=== PATIENT | female | born 1985 | race Caucasian/White ===

== ENCOUNTER → 2024-03-18 10:56 | Outpatient (REF) | payer BC, SELFPAY | LOC: PNTC 10:56 | PROVIDERS: ATTENDING PHYSICIAN Obstetrics & Gynecology | DX: Z36.0 Encounter for antenatal screening for chromosomal anomalies (principal); Z36.82 Encounter for antenatal screening for nuchal translucency; O09.519 Supervision of elderly primigravida, unspecified trimester | CPT/HCPCS: 76801; 76813 ==

== ENCOUNTER → 2024-07-16 08:25 | Outpatient (REF) | payer BC, SELFPAY | LOC: WDC 08:25 | PROVIDERS: ATTENDING PHYSICIAN Nurse Practitioner Family | DX: N63.20 Unspecified lump in the left breast, unspecified quadrant (principal); N63.23 Unspecified lump in the left breast, lower outer quadrant | CPT/HCPCS: 76642 ==

== ENCOUNTER 2024-08-20 19:57 | Observation (INO) | payer BC, SELFPAY ==
[2024-08-20 20:13] VITALS: BP 123/66; BMI 28.7
== END 2024-08-20 21:18 | disposition home or self-care (01) ==
LOC: LDRP 19:57
PROVIDERS: ADMITTING PHYSICIAN Obstetrics & Gynecology
DX: M54.50 Low back pain, unspecified (principal); W10.8XXA Fall (on) (from) other stairs and steps, initial encounter; Y93.89 Activity, other specified; Y92.9 Unspecified place or not applicable
CPT/HCPCS: 59899; G0378

== ENCOUNTER 2024-09-23 19:29 | Inpatient (IN) | payer BC, SELFPAY ==
[2024-09-23 19:55] VITALS: BP 134/66; BMI 30.1
[2024-09-23 20:26] LABS: % Basophils 0.3 % (0-2); % Eosinophils 0.7 % (0-6); % Immature Granulocytes 0.4 % (0-0.5); % Lymphocytes 24.9 % (20.5-51.1); % Monocytes 9.1 % (1.7-9.3); % Neutrophils 64.6 % (42.2-75.2); Absolute Eosinophils 0.1 10^3/uL (0-0.7); Absolute Lymphocytes 2.4 10^3/uL (1.2-3.4); Absolute Monocytes 0.9 10^3/uL (0.1-0.6); Absolute Neutrophils 6.3 10^3/uL (1.4-6.5); Hematocrit 40.1 % (37.0-47.0); Mean Corp Hgb Conc. 34.9 g/dL (33.0-37.0); Mean Corpuscular Hgb 31.9 pg (27.0-31.0); Mean Corpuscular Volume 91.3 fL (81.0-99.0); Mean Platelet Volume 10.5 fL (7.4-10.4); Nucleated Red Blood Cells % 0 %; Platelet Count 296 10^3/uL (130-400); Red Blood Cell Count 4.39 10^6/uL (4.20-5.40); Red Cell Dist. Width 12.9 % (11.5-14.5); White Blood Cell Count 9.8 10^3/uL (4.8-10.8)
[2024-09-24] MEDS: PITOCIN 30 UNITS/NSS 500 ML IV (06:15)
[2024-09-24] MEDS: LR 1000 IV (09:52)
[2024-09-24] MEDS: SUBLIMAZE 100 MCG EPIDURAL (12:45)
[2024-09-24] MEDS: FENTANYL/BUPIVACAINE 100 EPIDURAL (12:45)
[2024-09-24] MEDS: MOTRIN 600 MG PO (20:36)
[2024-09-24] MEDS: TYLENOL 650 MG PO (20:38)
[2024-09-25] MEDS: TYLENOL 650 MG PO ×2 (04:15→09:03)
[2024-09-25] MEDS: MOTRIN 600 MG PO ×2 (04:15→11:56)
[2024-09-25 06:33] LABS: Hematocrit 35.7 % (37.0-47.0); Hemoglobin 12.3 g/dL (12.0-16.0)
[2024-09-25] MEDS: PRENATAL PLUS 1 TABLET PO (09:03)
[2024-09-25] MEDS: SENOKOT-S 1 TABLET PO (09:05)
[2024-09-25 11:57] LABS: Syphilis/T. pallidum Ab Reflex Negative (Negative)
== END 2024-09-25 18:23 | disposition home or self-care (01) | DRG 807 ==
LOC: LDRP 19:29
PROVIDERS: Obstetrics & Gynecology; ADMITTING PHYSICIAN Obstetrics & Gynecology; REFERRING PHYSICIAN Obstetrics & Gynecology
PROC: 10907ZC Drainage of Amniotic Fluid, Therapeutic from Products of Conception, Via Natural or Artificial Opening (ICD-10-PCS; 2024-09-24)
PROC: 3E033VJ Introduction of Other Hormone into Peripheral Vein, Percutaneous Approach (ICD-10-PCS; 2024-09-24)
PROC: 10E0XZZ Delivery of Products of Conception, External Approach (ICD-10-PCS; 2024-09-24)
PROC: 0KQM0ZZ Repair Perineum Muscle, Open Approach (ICD-10-PCS; 2024-09-24)
DX: O48.0 Post-term pregnancy (principal); Z37.0 Single live birth; Z3A.40 40 weeks gestation of pregnancy; O70.1 Second degree perineal laceration during delivery
CPT/HCPCS: 36415; 85014; 85018; 85025; 86780; 86850; 86900; 86901

== ENCOUNTER → 2024-11-09 08:05 | Outpatient (REF) | payer BC, SELFPAY | LOC: HWRAD 08:05 | PROVIDERS: ATTENDING PHYSICIAN Obstetrics & Gynecology | DX: N93.9 Abnormal uterine and vaginal bleeding, unspecified (principal) | CPT/HCPCS: 76830; 76856 ==

== ENCOUNTER 2024-11-11 06:20 | Day surgery (SDC) | payer BC, SELFPAY ==
[2024-11-11 11:10] VITALS: BMI 25.8
[2024-11-11 11:15] VITALS: BP 107/71
[2024-11-11] MEDS: NORMOSOL-R/PLASMALYTE-A 1000 IV (11:25)
[2024-11-11 11:31] VITALS: BMI 25.8
[2024-11-11 11:41] LABS: Hematocrit 42.3 % (37.0-47.0); Hemoglobin 14.6 g/dL (12.0-16.0)
[2024-11-11 16:25] VITALS: BP 104/61; BP_SYST 12
[2024-11-11 16:35] VITALS: BP 96/65
[2024-11-11 16:55] VITALS: BP 101/63
== END 2024-11-11 17:09 | disposition home or self-care (01) ==
LOC: SDS 06:20
PROVIDERS: ATTENDING PHYSICIAN Obstetrics & Gynecology
DX: O72.2 Delayed and secondary postpartum hemorrhage (principal); Z37.9 Outcome of delivery, unspecified; N93.9 Abnormal uterine and vaginal bleeding, unspecified
CPT/HCPCS: 58120; 88305; 76998; 85014; 85018; 86850; 86900; 86901

== ENCOUNTER → 2024-11-20 08:58 | Outpatient (REF) | payer BC, SELFPAY | LOC: WDC 08:58 | PROVIDERS: ATTENDING PHYSICIAN Obstetrics & Gynecology | DX: N63.10 Unspecified lump in the right breast, unspecified quadrant (principal) | CPT/HCPCS: 76642 ==